=== PATIENT | female | born 1965 | race Caucasian/White ===

== ENCOUNTER 2016-08-14 08:10 | Emergency (ER) | payer BC ==
[2016-08-14 09:42] LABS: Hematocrit 42 % (35-47); Hemoglobin 13.9 g/dl (12.0-16.0); Mean Corpuscular HGB Conc 33 g/dl (31-36); Mean Corpuscular Hemoglobin 28 pg (27-31); Mean Corpuscular Volume 85 fL (80-97); Mean Platelet Volume 9 um3 (7.4-10.4); Red Blood Count 4.96 10^6/ul (4.0-5.4); Red Cell Distribution Width 14 % (10.5-15); White Blood Count 6.4 10^3/ul (3.5-10.8)
[2016-08-14 09:47] LABS: Urine Bacteria Absent (Absent); Urine Bilirubin Negative (Negative); Urine Glucose Negative (Negative); Urine Nitrite Negative (Negative)
[2016-08-14 09:56] LABS: Albumin 3.8 g/dL (3.2-5.2); Calcium 9.1 mg/dL (8.6-10.3); EGFR African American 99.5 (>60); EGFR Non-African American 77.4 (>60); Globulin 2.9 g/dL (2-4); Magnesium 1.9 mg/dL (1.9-2.7); Total Bilirubin 0.9 mg/dL (0.2-1.0); Total Protein 6.7 g/dL (6.4-8.9)
--- NOTE | 2016-08-14 10:24 | ED ---
Dizziness - HPI Summary HPI Summary: Patient presents with three days of low grade dizziness, with ear popping and ringing. She had a cold a month ago, but otherwise has been well. She had a mild left ear ache this morning. She denies vision changes, headache, neck pain , fever, inability to find words, N/T, or altered gait. No ear drainage. No loud noise exposure or head injury - History Of Current Complaint Chief Complaint: EDDizziness Stated Complaint: DIZZY / EARS RINGING Time Seen by Provider: 08/14/16 09:11 Hx Obtained From: Patient Onset/Duration: Still Present - three days ago without incident Timing: Constant Severity Initially: Mild Severity Currently: Mild Character: Dizzy Aggravating Factor(s): Nothing Alleviating Factor(s): Nothing Associated Signs And Symptoms: Positive: Tinnitus - Allergies/Home Medications Allergies/Adverse Reactions: Allergies Allergy/AdvReac Type Severity Reaction Status Date / Time No Known Allergies Allergy Verified 08/14/16 08:15 PMH/Surg Hx/FS Hx/Imm Hx Previously Healthy: Yes Infectious Disease History: No Infectious Disease History: Denies: Traveled Outside the [place] in Last 30 Days - Family History Known Family History: Positive: None - Social History Occupation: Employed Full-time Lives: With Family Alcohol Use: None Substance Use Type: Reports: None Smoking Status (MU): Never Smoked Tobacco Review of Systems Negative: Fever, Chills Negative: Photophobia, Blurred Vision, Diplopia Negative: Sore Throat, Ear Ache, Nasal Discharge Negative: Chest Pain Negative: Shortness Of Breath Negative: Vomiting, Diarrhea, Nausea Negative: Rash Negative: Headache, Weakness, Paresthesia, Numbness All Other Systems Reviewed And Are Negative: Yes Physical Exam Triage Information Reviewed: Yes Vital Signs On Initial Exam: Initial Vitals Temp Pulse Resp BP Pulse Ox 97.9 F 80 16 120/78 100 08/14/16 08:13 08/14/16 08:13 08/14/16 08:13 08/14/16 08:13 08/14/16 08:13 Vital Signs Reviewed: Yes Appearance: Positive: Well-Appearing, No Pain Distress - Patient is comfortably sitting in the room, Well-Nourished Skin: Positive: Warm, Skin Color Reflects Adequate Perfusion, Dry, Soft Head/Face: Positive: Normal Head/Face Inspection Eyes: Positive: EOMI, MEG, Conjunctiva Clear ENT: Positive: Hearing grossly normal, Pharynx normal, Other - Left TM appears mildy retracted with question of clear fluid behind drum. Negative: Nasal congestion, Nasal drainage Neck: Positive: Supple, Nontender, No Lymphadenopathy Respiratory/Lung Sounds: Positive: Clear to Auscultation, Breath Sounds Present Cardiovascular: Positive: RRR Abdomen Description: Positive: Nontender, Soft Bowel Sounds: Positive: Present Musculoskeletal: Positive: Strength/ROM Intact. Negative: Edema Left, Edema Right Neurological: Positive: Sensory/Motor Intact, Alert, Oriented to Person Place, Time, CN Intact II-III, Reflexes Intact, NV Bundle Intact Distally, Normal Gait , Heel to Toe - intact, Finger to Nose - intact, Facial Symmetry, Speech Normal. Negative: Receptive Aphasia, Expressive Aphasia, Disoriented, [place]omberg , Dysarthric Aphasia, [place] Test, Pronator Drift Present Psychiatric: Positive: Affect/Mood Appropriate AVPU Assessment: Alert Diagnostics - Vital Signs Vital Signs Temp Pulse Resp BP Pulse Ox 08/14/16 08:13 97.9 F 80 16 120/78 100 - Laboratory Lab Results: Lab Results 08/14/16 08/14/16 08/14/16 Range/Units 09:25 09:25 09:25 WBC 6.4 (3.5-10.8) 10^3/ul RBC 4.96 (4.0-5.4) 10^6/ul Hgb 13.9 (12.0-16.0) g/dl Hct 42 (35-47) % MCV 85 (80-97) fL MCH 28 (27-31) pg MCHC 33 (31-36) g/dl RDW 14 (10.5-15) % Plt Count 241 (150-450) 10^3/ul MPV 9 (7.4-10.4) um3 Neut % (Auto) 55.8 (38-83) % Lymph % (Auto) 31.7 (25-47) % Todd % (Auto) 9.3 H (1-9) % Eos % (Auto) 2.5 (0-6) % Baso % (Auto) 0.7 (0-2) % Absolute Neuts (auto) 3.6 (1.5-7.7) 10^3/ul Absolute Lymphs (auto) 2.0 (1.0-4.8) 10^3/ul Absolute Monos (auto) 0.6 (0-0.8) 10^3/ul Absolute Eos (auto) 0.2 (0-0.6) 10^3/ul Absolute Basos (auto) 0 (0-0.2) 10^3/ul Absolute Nucleated RBC 0.01 10^3/ul Nucleated RBC % 0.1 Sodium 137 (133-145) mmol/L Potassium 4.0 (3.5-5.0) mmol/L Chloride 103 (101-111) mmol/L Carbon Dioxide 29 (22-32) mmol/L Anion Gap 5 (2-11) mmol/L BUN 15 (6-24) mg/dL Creatinine 0.79 (0.51-0.95) mg/dL Est GFR ( Amer) 99.5 (>60) Est GFR (Non-Af Amer) 77.4 (>60) BUN/Creatinine Ratio 19.0 (8-20) Glucose 98 (70-100) mg/dL Lactic Acid (0.5-2.0) mmol/L Calcium 9.1 (8.6-10.3) mg/dL Magnesium 1.9 (1.9-2.7) mg/dL Total Bilirubin 0.90 (0.2-1.0) mg/dL AST 14 (13-39) U/L ALT 15 (7-52) U/L Alkaline Phosphatase 48 (34-104) U/L Troponin I 0.00 (<0.04) ng/mL Total Protein 6.7 (6.4-8.9) g/dL Albumin 3.8 (3.2-5.2) g/dL Globulin 2.9 (2-4) g/dL Albumin/Globulin Ratio 1.3 (1-3) TSH Pending Urine Color Yellow Urine Appearance Clear Urine pH 7.0 (5-9) Ur Specific [place] 1.013 (1.010-1.030) Urine Protein Negative (Negative) Urine Ketones Negative (Negative) Urine Blood 1+ H (Negative) Urine Nitrate Negative (Negative) Urine Bilirubin Negative (Negative) Urine Urobilinogen Negative (Negative) Ur Leukocyte Esterase Negative (Negative) Urine WBC (Auto) Absent (Absent) Urine RBC (Auto) Trace(0-2/hpf) (Absent) Ur Squamous Epith Cells Present H (Absent) Urine Bacteria Absent (Absent) Urine Glucose Negative (Negative) 08/14/16 Range/Units 09:25 WBC (3.5-10.8) 10^3/ul RBC (4.0-5.4) 10^6/ul Hgb (12.0-16.0) g/dl Hct (35-47) % MCV (80-97) fL MCH (27-31) pg MCHC (31-36) g/dl RDW (10.5-15) % Plt Count (150-450) 10^3/ul MPV (7.4-10.4) um3 Neut % (Auto) (38-83) % Lymph % (Auto) (25-47) % Todd % (Auto) (1-9) % Eos % (Auto) (0-6) % Baso % (Auto) (0-2) % Absolute Neuts (auto) (1.5-7.7) 10^3/ul Absolute Lymphs (auto) (1.0-4.8) 10^3/ul Absolute Monos (auto) (0-0.8) 10^3/ul Absolute Eos (auto) (0-0.6) 10^3/ul Absolute Basos (auto) (0-0.2) 10^3/ul Absolute Nucleated RBC 10^3/ul Nucleated RBC % Sodium (133-145) mmol/L Potassium (3.5-5.0) mmol/L Chloride (101-111) mmol/L Carbon Dioxide (22-32) mmol/L Anion Gap (2-11) mmol/L BUN (6-24) mg/dL Creatinine (0.51-0.95) mg/dL Est GFR ( Amer) (>60) Est GFR (Non-Af Amer) (>60) BUN/Creatinine Ratio (8-20) Glucose (70-100) mg/dL Lactic Acid 0.8 (0.5-2.0) mmol/L Calcium (8.6-10.3) mg/dL Magnesium (1.9-2.7) mg/dL Total Bilirubin (0.2-1.0) mg/dL AST (13-39) U/L ALT (7-52) U/L Alkaline Phosphatase (34-104) U/L Troponin I (<0.04) ng/mL Total Protein (6.4-8.9) g/dL Albumin (3.2-5.2) g/dL Globulin (2-4) g/dL Albumin/Globulin Ratio (1-3) TSH Urine Color Urine Appearance Urine pH (5-9) Ur Specific [place] (1.010-1.030) Urine Protein (Negative) Urine Ketones (Negative) Urine Blood (Negative) Urine Nitrate (Negative) Urine Bilirubin (Negative) Urine Urobilinogen (Negative) Ur Leukocyte Esterase (Negative) Urine WBC (Auto) (Absent) Urine RBC (Auto) (Absent) Ur Squamous Epith Cells (Absent) Urine Bacteria (Absent) Urine Glucose (Negative) Result Diagrams: 08/14/16 09:25 08/14/16 09:25 Lab Statement: Any lab studies that have been ordered have been reviewed, and results considered in the medical decision making process. Dizzy Course/Dx - Diagnoses Differential Diagnosis/HQI/PQRI: Anxiety, Coronary Artery Disease, Labyrinthitis , Meniere's Disease, Metabolic Abnormality, Transient Ischemic Attack Provider Diagnoses: Otitis media with effusion Discharge - Discharge Plan Condition: Stable Disposition: HOME Patient Education Materials: Serous Otitis Media (ED) Additional Instructions: Please use over the counter decongestants and/or allergy medication to help clear the fluid from your ear. Follow-up with your primary care provider if your symptoms persist for greater than a few months for re-evaluation. Return to the emergency department if your symptoms worsen.
[2016-08-14 10:34] LABS: TSH (Thyroid Stimulating Horm) 1.65 mcIU/mL (0.34-5.60)
[2016-08-14 11:11] VITALS: BP 117/73
== END 2016-08-14 11:09 | disposition home or self-care (01) ==
LOC: ED 08:10
DX: R42 Dizziness and giddiness (principal); H65.90 Unspecified nonsuppurative otitis media, unspecified ear
CPT/HCPCS: 36415; 80053; 81003; 81015; 83605; 83735; 84443; 84484; 85025; 93005; 99282

== ENCOUNTER 2018-02-01 06:26 | Day surgery (SDC) | payer BC ==
[~2018-02-01 06:26] MED LIST: Buffered Lidocaine 0.9% SYRIN* 5 ML/SYR SYRINGE INTRADERM ONE; Sodium Citrate/Citric Acid* 15 ML UDC PO ONE
[2018-02-01] MEDS ORDERED: ceFAZolin 2 GM PREMIX (*) 2 GM/50 ML BAG IVPB ONE (06:38)
[2018-02-01] MEDS ORDERED: Sodium Citrate/Citric Acid* 15 ML UDC ONE (06:38)
[2018-02-01] MEDS ORDERED: Bupivacaine 0.5% SDV PF* 30ML VIAL ONE (07:24)
[2018-02-01] MEDS ORDERED: Lidocaine 1% MPF wEPI 200,000* 30 ML SDV ONE (07:24)
[2018-02-01] MEDS ORDERED: fentaNYL* 50 MCG/ML 2 ML VIAL (100 MCG VIAL) ONE (07:31)
[2018-02-01] MEDS ORDERED: Lidocaine 2% PF * 5 ML VIAL ONE (07:31)
[2018-02-01] MEDS ORDERED: Propofol* 10 MG/ML 20 ML BTL IV PUSH ONE (07:31)
[2018-02-01] MEDS ORDERED: Naloxone* 0.4 MG/ML 1 ML VIAL IV PRN (07:58)
[2018-02-01] MEDS ORDERED: Ondansetron INJ* 2 MG/ML VIAL IV PRN (07:58)
[2018-02-01] MEDS ORDERED: fentaNYL* 50 MCG/ML 2 ML VIAL (100 MCG VIAL) IV PRN (07:58)
[2018-02-01] MEDS ORDERED: Ketorolac INJ* 30 MG/ML 1 ML VIAL IV PRN (07:58)
[2018-02-01] MEDS ORDERED: Ibuprofen TAB* 600 MG ONE (08:51)
[2018-02-01 09:04] VITALS: BP 112/73
--- NOTE | 2018-02-01 10:53 | OP ---
DATE OF OPERATION: 02/01/18 - [facility] DATE OF : 69 SURGEON: Kavon Austin MD. WIND UP OPERATOR: None available. ANESTHESIOLOGIST: Dr. Park ANESTHESIA: General. PRE-OP DIAGNOSIS: Left knee meniscus tear. POST-OP DIAGNOSIS: Left knee lateral meniscal fraying with synovitis of the medial and patellofemoral compartments as well as patellar chondrosis. OPERATIVE PROCEDURE: Left knee arthroscopy with: 1. Synovectomy of the medial, anterior, and patellofemoral compartments. 2. Partial lateral meniscectomy. 3. Chondroplasty of the patellofemoral joint. COMPLICATIONS: None. ESTIMATED BLOOD LOSS: Minimal. INDICATIONS: Maribel Arguello is a 52-year-old female who has had a one-year history of pain in her knee. She has failed conservative treatment including antiinflammatories, physical therapy. She has elected to proceed with surgical treatment. MRI demonstrated a possible meniscal tear and her symptoms fit with mechanical type symptoms. Risks and benefits were discussed at length included but not limited to bleeding, infection, damage to nerves, vessels, surrounding structures, wound nonhealing, persistent pain, need for surgery, scarring, stiffness, incomplete relief of symptoms, and risk of DVT. DESCRIPTION OF PROCEDURE: The patient was greeted in the preoperative area by the attending surgeon. The correct extremity was marked and consent was confirmed. The patient was brought back to the operative suite where she was placed in supine position on the operating table. She then underwent general anesthesia with LMA intubation after which she was appropriately positioned on the bed. An unsterile tourniquet was placed as well as the lateral post. After which, the left leg was then prepped and draped in usual sterile fashion beginning with Betadine scrub, alcohol wipe, and Betadine paint. After appropriate surgical pause indicating side, site, procedure, and administration of antibiotics, the knee was intra-articularly injected with 1% lidocaine with epi. The anterolateral portal was made sharply with an 11 blade. The scope was introduced through the joint. The joint was examined. There was abundant synovitis present. There were no obvious lose bodies. Most of the patellar joint had grade 0 to 1 changes, but there was an area of chondrosis and grade 2 changes with unstable flaps. Medial and lateral gutters were intact, but there was a large area of synovitis and fat pad. The ACL and PCL were intact. The anteromedial portal was made in an outside-in fashion. Shaver was used to debride back the synovitis. The diagnostic arthroscopy was done. The medial meniscus was intact with no unstable tears. The lateral meniscus had some unstable fraying, which was debrided back using shaver. Lateral and medial compartments had grade 0 to 1 changes. At this point, the knee was placed in 90 and 0 degrees and there was abundant synovectomy that was removed from particularly patellofemoral, anterior, and medial portions of the compartment. After this was done, a small chondroplasty of the patellofemoral joint was done due to unstable flaps. The wounds were then copiously irrigated with sterile saline. Sterile dressings were applied. She was awoken from anesthesia and transferred to PACU in stable condition. POSTOPERATIVE PLAN: She will be weightbearing as tolerated with crutches for 3 to 5 days. She will be discharged on pain medication. DVT prophylaxis was considered, but deferred due to no previous personal or family history. I will see the patient back in 10 to 14 days. [id number]/[facility] #: [id number] MARY
== END 2018-02-01 09:20 | disposition home or self-care (01) ==
LOC: OREAST 06:26
PROVIDERS: ATTEND Orthopaedic Surgery
DX: M23.201 Derangement of unspecified lateral meniscus due to old tear or injury, left knee (principal); M65.862 Other synovitis and tenosynovitis, left lower leg; M93.962 Osteochondropathy, unspecified, left lower leg
CPT/HCPCS: 81025; 88304; A9270-GY; J0690; J2001; J2704; J3010

== ENCOUNTER 2019-07-31 18:55 | Emergency (ER) | payer OTHER ==
--- NOTE | 2019-07-31 19:40 | ED ---
Shortness of Breath - HPI Summary HPI Summary: The patient is a 54 y/o F presenting to [facility] accompanied by with a chief complaint of gradually worsening SOB over that last few weeks. She reports that she is currently suffering from fibroids and had been experiencing menorrhagia over the last few months and had rhianna found to be slightly anemic. She now has become dyspneic especially with exertion or speaking, which she noticed recently with difficulty breathing normally while walking up a hill at work which has not been problematic in the past. She states that she has felt palpations with the SOB, but she denies CP. She also denies fevers, chills, diaphoresis, nausea, abdominal pain, or abnormal cough, although she has a chronic cough secondary to GERD. Symptoms currently rated 0/10 in severity. No history of respiratory conditions or difficulty with breathing. No other known PMHx. FHx: cardiac disease with deaths in father young age and brother at 40. Nonsmoker, rare EtOH, no substance use. Medications reviewed. Allergies noted. - History of Current Complaint Chief Complaint: EDDysrhythmPalp Time Seen by Provider: 07/31/19 19:28 Hx Obtained From: Patient Onset/Duration: Lasting Weeks, Still Present Timing: Intermittent Episodes Lasting: - minutes Current Severity: None Dyspnea At: Exertion Aggravating Factors: Other - exertion, speaking Alleviating Factors: Other - rest Associated Signs & Symptoms: Negative - Allergy/Home Medications Allergies/Adverse Reactions: Allergies Allergy/AdvReac Type Severity Reaction Status Date / Time No Known Allergies Allergy Verified 02/01/18 06:48 Home Medications: Home Medications Iron 65 mg PO DAILY 07/31/19 [History Confirmed 07/31/19] Norethindrone Acetate 5 mg PO DAILY 07/31/19 [History Confirmed 07/31/19] Pantoprazole TAB * [Protonix TAB*] 40 mg PO DAILY 07/31/19 [History Confirmed ] PMH/Surg Hx/FS Hx/Imm Hx Endocrine/Hematology History: Denies: Hx Diabetes Cardiovascular History: Denies: Hx Hypertension, Hx Pacemaker/ICD Respiratory History: Denies: Hx Asthma GI History: Reports: Hx Gastroesophageal Reflux Disease - HX OF -MANAGED WITH DIET History: Reports: Hx Kidney Stones - HX OF AT AGE 14 Denies: Hx Renal Disease Sensory History: Denies: Hx Contacts or Glasses, Hx Hearing Aid Opthamlomology History: Denies: Hx Contacts or Glasses Psychiatric History: Denies: Hx Panic Disorder - Surgical History Surgical History: Yes Surgery Procedure, Year, and Place: [facility] ENDOSCOPY Hx Anesthesia Reactions: No Infectious Disease History: No Infectious Disease History: Denies: Traveled Outside the [place] in Last 30 Days - Family History Known Family History: Positive: Cardiac Disease - father at young age, brother age 40 - Social History Alcohol Use: Rare Hx Substance Use: No Substance Use Type: Reports: None Hx Tobacco Use: No Smoking Status (MU): Never Smoked Tobacco Review of Systems Negative: Fever, Chills, Skin Diaphoresis Positive: Palpitations. Negative: Chest Pain Positive: Shortness Of Breath. Negative: Cough Negative: Abdominal Pain, Nausea All Other Systems Reviewed And Are Negative: Yes Physical Exam - Summary Physical Exam Summary: Appearance: Well-appearing, Well-nourished, lying in bed comfortably Skin: Warm, dry, no obvious rash Eyes: sclera anicteric, no conjunctival pallor ENT: mucous membranes moist, pharynx appears normal Neck: Supple, nontender Respiratory: Clear to auscultation, no signs of respiratory distress Cardiovascular: Normal S1, S2. No murmurs. Normal distal pulses in tibial and radial bilaterally. Abdomen: Soft, nontender, normal active bowel sounds present Musculoskeletal: Normal, Strength/ROM Intact Neurological: A&Ox3, awake and alert, mentation is normal, speech is fluent and appropriate Psychiatric: affect is normal, does not appear anxious or depressed Triage Information Reviewed: Yes Vital Signs On Initial Exam: Initial Vitals Temp Pulse Resp BP Pulse Ox 98.5 F 104 18 150/75 100 07/31/19 19:02 07/31/19 19:02 07/31/19 19:02 07/31/19 19:02 07/31/19 19:02 Vital Signs Reviewed: Yes Procedures - Sedation Patient Received Moderate/Deep Sedation with Procedure: No Diagnostics - Vital Signs Vital Signs Temp Pulse Resp BP Pulse Ox 07/31/19 19:02 98.5 F 104 18 150/75 100 - Laboratory Result Diagrams: 07/31/19 19:38 07/31/19 19:38 Lab Statement: Any lab studies that have been ordered have been reviewed, and results considered in the medical decision making process. - Radiology CXR Radiology Interpretation Completed By: ED Physician Summary of Radiographic Findings: No acute process. ED physician has reviewed and interpreted this imaging report. Pending official read. - EKG 1858 Cardiac Rate: Tachycardia - 107 bpm EKG Rhythm: Sinus Tachycardia Summary of EKG Findings: Sinus tachycardia at 107 bpm. Otherwise normal EKG with P waves, QRS complex, and T waves are within normal limits, T waves and intervals are normal. ED physician has reviewed and interpreted this EKG. Re-Evaluation - Re-Evaluation First Eval Re-Evaluation Time: 22:25 Comment: We discussed results and plan for discharge. Course/Dx - Course Course Of Treatment: 54 y/o F without history of respiratory conditions presenting with SOB and palpitations with exertion and speaking gradually onset over the last few weeks. No other symptoms reported. Cardiac disease in family with deaths at early age. Physical exam reveals no acute abnormalities. Blood work obtained and reveals hemoglobin of 10.9, hematocrit of 33, MCH of 26, potassium of 3.4, glucose of 107, and calcium of 84. First troponin of 0.00. EKG at 1858 reveals sinus tachycardia at 107 bpm, but is otherwise normal. Chest x-ray, per my interpretation, is negative for any acute process. HEART score of 2. She is advised to follow up with her PCP for further testing. Patient understands and agrees with this plan. Dx of dyspnea on exertion. - Diagnoses Provider Diagnoses: Dyspnea on exertion Discharge ED - Sign-Out/Discharge Documenting (check all that apply): Patient Departure - Patient will be discharged home. - Discharge Plan Condition: Good Disposition: HOME Patient Education Materials: Dyspnea (ED) Referrals: Elen Gallagher MD [Primary Care Provider] - 3 Days Additional Instructions: I am not sure what is causing your windedness. Your hemoglobin level is low, but not so low that I would expect you to be symptomatic. So your doctor is probably going to need to send you for further testing. In the interim we are always here, and if you getting a lot worse we should see you back. - Billing Disposition and Condition Condition: GOOD Disposition: Home - Attestation Statements Document Initiated by Scribe: Yes Documenting Scribe: Maddy Orona Provider For Whom Beatris is Documenting (Include Credential): MD Laya Reaibe Attestation: I, oneal Thacker for Dr. Cuco Bojorquez MD on 08/01/19 at 0600. Scribe Documentation Reviewed: Yes Provider Attestation: The documentation as recorded by the scribe, Maddy Orona accurately reflects the service I personally performed and the decisions made by me, Dr. Cuco Bojorquez MD Status of Scrben Document: Viewed
[2019-07-31 19:49] LABS: ABS Eosinophils 0.2 10^3/ul (0-0.6); ABS Monocytes 0.6 10^3/ul (0-0.8); ABS Neutrophils 4.5 10^3/ul (1.5-7.7); Eosinophil % 2.5 %; Hematocrit 33 % (35-47); Hemoglobin 10.9 g/dL (12.0-16.0); Lymphocyte % 27.3 %; Mean Corpuscular HGB Conc 33 g/dL (31-36); Mean Corpuscular Hemoglobin 26 pg (27-31); Mean Corpuscular Volume 80 fL (80-97); Mean Platelet Volume 7.8 fL (7.4-10.4); Platelet Count 396 10^3/uL (150-450); Red Blood Count 4.16 10^6 /uL (3.70-4.87); Red Cell Distribution Width 13 % (10-15); White Blood Count 7.2 10^3/uL (3.5-10.8)
[2019-07-31 20:06] LABS: Albumin 3.9 g/dL (3.2-5.2); Albumin/Globulin Ratio 1.3 (1-3); BUN/Creatinine Ratio 18.9 (8-20); Calcium 8.4 mg/dL (8.6-10.3); EGFR African American 99.7 (>60); EGFR Non-African American 82.4 (>60); Globulin 2.9 g/dL (2-4); Potassium 3.4 mmol/L (3.5-5.0); Total Bilirubin 0.8 mg/dL (0.2-1.0); Total Protein 6.8 g/dL (6.4-8.9)
--- OUTSIDE RECORDS SUMMARY | 2019-07-31 20:17 | XMS REPORT | Continuity of Care Document ---
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 Medicine Problems Active Problems Provider Date Current tear of lateral cartilage AND/OR meniscus Kavon Austin MD Onset: of knee Other tear of lateral meniscus, current injury, Kavon Austin MD Onset: 11/24 left knee, subsequent encounter Knee joint effusion Kavon Austin MD Onset: 11/24/2017 Social History Type Date Description Comments Sex Unknown ETOH Use Rarely consumes alcohol Tobacco Use Start: Unknown Patient has never smoked Smoking Status Reviewed: 07/29/19 Patient has never smoked Exercise Type/Frequency Exercises regularly Allergies, Adverse Reactions, Alerts Description No Known Drug Allergies Medications Active Medications SIG Qnty Indications Ordering Date Provider Norethindrone Acetate 1 by mouth three 60tabs Flower Fish, 07/25/2019 5mg times per day MD Tablets until bleeding slows then titrate down to twice a day for one week, then once per day Levonorgestrel/Ethinyl take on tablet 84tabs Vi Abbott, N.P. 07/11/2019 Estradiol daily 0.15-0.03mg Tablets Ibuprofen 200 400-600mg every 6 Unknown 200mg hours as needed Tablets for pain. Immunizations Description No Information Available Vital Signs Date Vital Result Comment 07/29/2019 7:56am Height 64 inches 5'4" Weight 185.00 lb Heart Rate 97 /min BP Systolic 124 mmHg BP Diastolic 78 mmHg O2 % BldC Oximetry 97 % BMI (Body Mass Index) 31.8 kg/m2 Last Menstrual Period [id number] 07/11/2019 11:01am Height 64 inches 5'4" Weight 185.00 lb Heart Rate 81 /min BP Systolic 130 mmHg BP Diastolic 82 mmHg O2 % BldC Oximetry 98 % BMI (Body Mass Index) 31.8 kg/m2 Last Menstrual Period [id number] Results Test Acquired Facility Test Result H/L Range Note Date Laboratory test 07/29/2019 [employer] [facility] In House negative finding Test Urine CBC Auto Diff 07/26/2019 [facility] White Blood 8.9 10^3/uL Normal 3.5-10.[address] [place] [address] [phone] Red Blood Count 4.16 10^6/uL Normal 3.70-4.87 Hemoglobin 11.1 g/dL Low 12.0-16.0 Hematocrit 34 % Low 35-47 Mean Corpuscular Volume 82 fL Normal 80-97 Mean Corpuscular Hemoglobin 27 pg Normal 27-31 Mean Corpuscular HGB Conc 33 g/dL Normal 31-36 Red Cell Distribution Width 13 % Normal 10-15 Platelet Count 352 10^3/uL Normal 150-450 Mean Platelet Volume 8.6 fL Normal 7.4-10.4 Abs Neutrophils 6.2 10^3/uL Normal 1.5-7.7 Abs Lymphocytes 1.6 10^3/uL Normal 1.0-4.8 Abs Monocytes 0.8 10^3/uL Normal 0-0.8 Abs Eosinophils 0.3 10^3/uL Normal 0-0.6 Abs Basophils 0.1 10^3/uL Normal 0-0.2 Abs Nucleated RBC 0.0 10^3/uL Granulocyte % 69.2 % Lymphocyte % 18.1 % Monocyte % 8.7 % Eosinophil % 3.1 % Basophil % 0.9 % Nucleated Red Blood Cells % 0.2 Laboratory test 07/26/2019 [facility] Ferritin 4.7 ng/mL Low 11-[address] [place] [address] [phone] Procedures Description No Information Available Medical Devices Description No Information Available Encounters Description No Information Available Assessments Date Code Description Provider 07/29/2019 N93.9 Abnormal uterine and vaginal bleeding, VANITA Hathaway unspecified 07/29/2019 D25.9 Leiomyoma of uterus, unspecified Citlali Stevenskins, M[employer]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 unspecified Plan of Treatment Future Appointment(s):08/11/2019 3:30 pm - Flower Fish MD at [facility]07/29/2019 - RONY HathawayP-[id number] Abnormal uterine and vaginal bleeding, unspecifiedRecommendations:1. Continue taking Northindrone daily. You can try to wean down to one/day and increase if your bleeding increases. 2. Continue on iron as ordered by [facility]. Take this daily with Vitamin C. Take 1-2 colace pills as needed for constipation 3. Call us if your bleeding increases or ifyou feel lightheaded/[id number] Leiomyoma of uterus, unspecified Functional Status Description No Information Available Mental Status Description No Information Available Referrals Description No Information Available
--- OUTSIDE RECORDS SUMMARY | 2019-07-31 20:17 | XMS REPORT | Continuity of Care Document ---
:1965 External Reference #:[id number] Author Name WALTER Hathaway-Cde (transmitted by agent of provider Gege Santiago) Address [address], [place] [address] Care Team Providers Name Role Phone Elen Gallagher MD - Family Care Team Information Library Media Specialist [phone] Medicine Problems Active Problems Provider Date Current [...] Mass Index) 31.8 kg/m2 Last Menstrual Period [id number] 07/11/2019 11:01am Height 64 inches 5'4" Weight 185.00 lb Heart Rate 81 /min BP Systolic 130 mmHg BP Diastolic 82 mmHg O2 % BldC Oximetry 98 % BMI (Body Mass Index) 31.8 kg/m2 Last Menstrual Period [id number] Results Test Acquired Facility Test Result H/L Range Note Date Laboratory test 07/29/2019 Custodial Officer In House negative finding Test Urine CBC Auto Diff 07/26/2019 [facility] White Blood 8.9 10^3/uL Normal 3.5-10.[address] [place] [address] [phone] Red Blood Count 4.16 10^6/uL Normal 3.70-4.87 [...] Blood Cells % 0.2 Laboratory test 07/26/2019 [facility] Ferritin 4.7 ng/mL Low 11-[address] [place] [address] [phone] Procedures Description No Information Available Medical Devices Description No Information Available Encounters Description No Information Available Assessments Date Code Description Provider 07/29/2019 N93.9 Abnormal uterine and vaginal bleeding, VANITA Hathaway unspecified 07/29/2019 D25.9 Leiomyoma of uterus, unspecified WALTER Hathaway-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 unspecified Plan of Treatment Future Appointment(s):08/11/2019 3:30 pm - Flower Fish MD at [facility]07/29/2019 - Charbel HathawayeN93.9 Abnormal uterine and vaginal bleeding, tidoxhnwvxcL42.9 Leiomyoma of uterus, unspecified Functional Status Description No Information Available Mental Status Description No Information Available Referrals Description No Information Available
--- OUTSIDE RECORDS SUMMARY | 2019-07-31 20:17 | XMS REPORT | Continuity of Care Document ---
:1965 External Reference #:[id number] Author Name Vi Abbott N.P. (transmitted by agent of provider Britta Daily-Whitehall) Address [facility] [place] [address] Care Team Providers Name Role Phone Elen Gallagher MD - Family Care Team Information Quality Intern Medicine Problems Active Problems Provider Date Current [...] Patient has never smoked Smoking Status Reviewed: 07/11/19 Patient has never smoked Exercise Type/Frequency Exercises regularly Allergies, Adverse Reactions, Alerts Description No Known Drug Allergies Medications Active Medications SIG Qnty Indications Ordering Provider Date Levonorgestrel/Ethiny take on tablet 84tabs Vi Abbott N.P. 07/11/2019 l Estradiol daily 0.15-0.03mg Tablets Ibuprofen 200 400-600mg every Unknown 200mg 6 hours as Tablets needed for pain. Immunizations Description No Information Available Vital Signs Date Vital Result Comment 07/11/2019 11:01am Height 64 inches 5'4" Weight 185.00 lb Heart Rate 81 /min BP Systolic 130 mmHg BP Diastolic 82 mmHg O2 % BldC Oximetry 98 % BMI (Body Mass Index) 31.8 kg/m2 Last Menstrual Period [id number] 12/14/2018 2:37pm Height 64 inches 5'4" Weight 155.00 lb BP Systolic 114 mmHg BP Diastolic 68 mmHg Respiratory Rate 18 /min Pain Level 2 BMI (Body Mass Index) 26.6 kg/m2 Results Description No Information Available Procedures Description No Information Available Medical Devices Description No Information Available Encounters Description No Information Available Assessments Date Code Description Provider 07/11/2019 N93.9 Abnormal uterine and vaginal bleeding, unspecified Vi Abbott N.P. Plan of Treatment 07/11/2019 - Vi Abbott N.P.N93.9 Abnormal uterine and vaginal bleeding, unspecifiedComments:[facility] CBC and iron [facility]. Plan to check transvaginal US. Plan to start OCPs continuously. Functional Status Description No Information Available Mental Status Description No Information Available Referrals Description No Information Available
--- OUTSIDE RECORDS SUMMARY | 2019-07-31 20:17 | XMS REPORT | Continuity of Care Document ---
:1965 External Reference #:[id number] Author Name WALTER Hathaway-Cde (transmitted by agent of provider Gege Santiago) Address [address], [place] [address] Care Team Providers Name Role Phone Elen Gallagher MD - Family Care Team Information Manager Php Medicine Problems Active Problems Provider Date Current [...] for one week, then once per day Ibuprofen 200 400-600mg every 6 Unknown 200mg hours as needed Tablets for pain. History Medications Levonorgestrel/Ethinyl take on tablet 84tabs Vi Abbott, 07/11/2019 - Estradiol daily N.P. 07/29/2019 0.15-0.03mg Tablets Immunizations Description No Information Available Vital Signs Date Vital Result Comment 07/29/2019 7:56am Height 64 inches 5'4" Weight 185.00 lb Heart Rate 97 /min BP Systolic 124 mmHg BP Diastolic 78 mmHg O2 % BldC Oximetry 97 % BMI (Body Mass Index) 31.8 kg/m2 Last Menstrual Period [id number] 07/11/2019 11:01am Height 64 inches 5'4" Weight 185.00 lb Heart Rate 81 /min BP Systolic 130 mmHg BP Diastolic 82 mmHg O2 % BldC Oximetry 98 % BMI (Body Mass Index) 31.8 kg/m2 Last Menstrual Period [id number] Results Test Acquired Facility Test Result H/L Range Note Date Laboratory test 07/29/2019 Knowledge Management Consultant In House negative finding Test Urine CBC Auto Diff 07/26/2019 [facility] White Blood 8.9 10^3/uL Normal 3.5-10.[address] [place] [address] [phone] Red Blood Count 4.16 10^6/uL Normal 3.70-4.87 [...] Blood Cells % 0.2 Laboratory test 07/26/2019 [facility] Ferritin 4.7 ng/mL Low 11-[address] [place] [address] [phone] Procedures Description No Information Available Medical Devices Description No Information Available Encounters Description No Information Available Assessments Date Code Description Provider 07/29/2019 N93.9 Abnormal uterine and vaginal bleeding, VANITA Hathaway Cde unspecified 07/29/2019 D25.9 Leiomyoma of uterus, unspecified Elieser Hathaway 07/11/2019 N93.9 Abnormal uterine and vaginal bleeding, Vi Abbott N.P. unspecified Plan of Treatment Future Appointment(s):08/11/2019 3:30 pm - Flower Fish MD at [facility]07/29/2019 - Charbel HathawayeN93.9 Abnormal uterine and vaginal bleeding, unspecifiedRecommendations:1. Continue taking Northindrone daily. You can try to wean down to one/day and increase if your bleeding increases. 2. Continue on iron as ordered by [facility]. Take this daily with Vitamin C. Take 1-2 colace pills as needed for constipation 3. Call us if your bleeding increases or ifyou feel lightheaded/wmcmaH04.9 Leiomyoma of uterus, unspecified Functional Status Description No Information Available Mental Status Description No Information Available Referrals Description No Information Available
[2019-07-31 20:40] LABS: TSH (Thyroid Stimulating Horm) 1.78 mcIU/mL (0.34-5.60)
[2019-07-31 22:35] VITALS: BP 117/64
== END 2019-07-31 22:34 | disposition home or self-care (01) ==
LOC: ED 18:55
DX: R06.00 Dyspnea, unspecified (principal); K21.9 Gastro-esophageal reflux disease without esophagitis; Z87.442 Personal history of urinary calculi; Z79.899 Other long term (current) drug therapy
CPT/HCPCS: 36415; 71046; 80053; 84443; 84484; 85025; 93005; 99283

== ENCOUNTER 2023-10-21 10:01 | Observation (INO) ==
[2023-10-21 10:37] LABS: ABS Basophils 0.1 10^3/uL (0.0-0.1); ABS Eosinophils 0.5 10^3/uL (0.0-0.5); ABS Lymphocytes 2.3 10^3/uL (1.0-4.8); ABS Monocytes 0.5 10^3/uL (0.0-0.9); ABS Neutrophils 2.5 10^3/uL (1.5-7.6); Eosinophil % 8.4 %; Hematocrit 44.2 % (35-45); Hemoglobin 14.7 g/dL (11.5-14.3); Lymphocyte % 39.3 %; Mean Corpuscular Hemoglobin 28.8 pg (27-33); Mean Corpuscular Hgb Conc 33.3 g/dL (31-36); Mean Corpuscular Volume 86.5 fL (80-97); Mean Platelet Volume 8.7 fL (7.5-11.2); Nucleated Red Blood Cells % 0.1 %/100WBC (0.0-0.8); Platelet Count 219 10^3/uL (150-450); Red Blood Count 5.12 10^6/uL (3.63-4.92); Red Cell Distribution Width 13.3 % (12-17); White Blood Count 5.9 10^3/uL (3.8-11.8)
[2023-10-21 11:54] LABS: Albumin 4.2 g/dL (3.2-5.2); Albumin/Globulin Ratio 1.6 (1-3); Calcium 9.2 mg/dL (8.6-10.3); Creatinine, Serum 0.69 mg/dL (0.51-0.95); Globulin 2.6 g/dL (2-4); Potassium 4.2 mmol/L (3.5-5.0); Total Bilirubin 0.6 mg/dL (0.2-1.0); Total Protein 6.8 g/dL (6.4-8.9); eGFR CKD-EPI 101.8 (>60)
[2023-10-21] MEDS: NS 0.9% 1000 ml BAG 1,000 ML IV ONE ×2 (11:54→15:51)
[2023-10-21 12:03] LABS: High Sensitivity Troponin 1 Hr 3 pg/mL (<15)
[2023-10-21 12:13] LABS: Activated Partial Thrombo Time 32.4 seconds (26.0-38.0); INR 0.96 (0.83-1.13)
[2023-10-21 12:28] LABS: HCG Pregnancy 3.06 mIU/mL
[2023-10-21 12:36] LABS: TSH Ultra Thyroid Stim Horm 1.95 mcIU/mL (0.34-5.60)
[2023-10-21 12:41] LABS: Free T4 0.81 ng/dL (0.61-1.12)
[2023-10-21] MEDS: Iohexol 350 (CONTRAST) 500 ML MDV IV ONE (13:34)
[2023-10-21] MEDS: Metoprolol Tartrate 5 mg VIAL 5 ml VIAL (1 mg/ml) IV ONE (18:01)
[2023-10-21] MEDS: Enoxaparin 40 MG/0.4 ML SYR SUBCUT SCH (18:01)
[2023-10-22 09:50] VITALS: BP 108/67
== END 2023-10-22 13:48 | disposition home or self-care (01) ==
LOC: EDHOLD 10:01 → ED 10:01 → MEDTELE 21:31
PROVIDERS: ADMIT Hospitalist; ATTEND Hospitalist